=== PATIENT | female | born 1940 | race Caucasian/White ===

== ENCOUNTER → 2016-10-13 | Day surgery (SDC) | payer MEDICARE, OTHER ==
[~2016-10-13] VITALS: Ht 162.6 cm; Wt 64.9 kg
== END | disposition home or self-care (01) ==
LOC: FAS 07:33
DX: H26.9 Unspecified cataract (principal); E11.36 Type 2 diabetes mellitus with diabetic cataract; E78.5 Hyperlipidemia, unspecified; Z79.82 Long term (current) use of aspirin; F17.210 Nicotine dependence, cigarettes, uncomplicated; Z79.899 Other long term (current) drug therapy